=== PATIENT | female | born 1980 | race Caucasian/White ===

== ENCOUNTER 2016-10-14 14:14 | Emergency (ER) | payer OTHER ==
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
[2016-10-14] MEDS ORDERED: IBUPROFEN 400 MG TABLET PO ONE (15:33)
[2016-10-14 16:10] VITALS: BP 123/57
== END 2016-10-14 15:51 | disposition home or self-care (01) ==
LOC: ER 14:14
DX: S29.012A Strain of muscle and tendon of back wall of thorax, initial encounter (principal); S09.90XA Unspecified injury of head, initial encounter; V49.40XA Driver injured in collision with unspecified motor vehicles in traffic accident, initial encounter; I10 Essential (primary) hypertension
CPT/HCPCS: 99283; J3490